=== PATIENT | male | born 1975 | race African-American/Black ===

== ENCOUNTER 2019-03-28 09:01 | Emergency (ER) | payer SELFPAY ==
--- NOTE | 2019-03-28 09:33 | ER Document Report ---
ED General - General Chief Complaint: Medical Complaint Stated Complaint: KIDNEY PROBLEM Time Seen by Provider: 03/28/19 09:25 Primary Care Provider: EMELI BREAUX [NO LOCAL MD] - Follow up as needed TRAVEL OUTSIDE OF THE U.S. IN LAST 30 DAYS: No - HPI Notes: This is a 43-year-old gentleman with a history of end-stage renal disease secondary to hypertensive disease, who presents today with a complaint of "I need dialysis." Patient recently was [facility] [place] where e spent the last 9-1/2 years. He used to get dialysis through the [facility] system. He states that prior to his release from [facility], they told him that they had arranged for him to continue his dialysis here in [place] where he lives. He called the dialysis center at [facility] yesterday and was told they had no information about him in the systems. His last dialysis was on Saturday prior to his release on . He normally gets dialyzed on Tuesdays, and Saturday. He is concerned about going all weekend without dialysis. He has no complaints at this time. He denies any shortness of breath or chest pain. - Related Data Allergies/Adverse Reactions: No Known Allergies Allergy (Unverified 03/28/19 09:15) Home Medications: abacavir. benadryl. darunavir/cobicstat. diltiazem. labetalol. latanoprost. minoxidil. ranitidine. sevelamer carbonate. tenofovir. vitamin A&D. vitamin B. vitamin D3. darbepoetin isreal. doxercalciferol Past Medical History - Social History Smoking Status: Never Smoker Chew tobacco use (# tins/day): No Frequency of alcohol use: None Drug Abuse: None Family History: Reviewed & Not Pertinent Patient has suicidal ideation: No Patient has homicidal ideation: No Skin Medical History: Comment Only Hx MRSA - MRSA 08/27 BLOOD,MRSA 08/27 CTIP Review of Systems - Review of Systems Cardiovascular: denies: Chest pain, Palpitations Respiratory: denies: Cough, Short of breath Gastrointestinal: denies: Abdominal pain Neurological/Psychological: denies: Headaches -: Yes All other systems reviewed and negative Physical Exam - Vital signs Vitals: Temp Pulse Resp BP Pulse Ox 97.6 F 78 18 171/107 H 100 03/28/19 09:07 03/28/19 09:07 03/28/19 09:07 03/28/19 09:07 03/28/19 09:07 - General General appearance: Appears well, Alert - Respiratory Respiratory status: No respiratory distress Chest status: Nontender Breath sounds: Normal Chest palpation: Normal - Cardiovascular Rhythm: Regular Heart sounds: Normal auscultation Murmur: No - Abdominal Inspection: Normal Distension: No distension Bowel sounds: Normal Tenderness: Nontender Organomegaly: No organomegaly - Extremities General upper extremity: Normal inspection, Nontender, Normal color, Normal ROM, Normal temperature General lower extremity: Normal inspection, Nontender, Normal color, Normal ROM, Normal temperature, Normal weight bearing. No: Nico's sign - Neurological Neuro grossly intact: Yes Cognition: Normal Orientation: AAOx4 [place] Coma Scale Eye Opening: Spontaneous [place] Coma Scale Verbal: Oriented [place] Coma Scale Motor: Obeys Commands [place] Coma Scale Total: 15 Speech: Normal Motor strength normal: LUE, RUE, LLE, RLE Sensory: Normal - Psychological Associated symptoms: Normal affect, Normal mood Course - Re-evaluation Re-evalutation: 03/28/19 09:31 Clinical presentation is consistent with end-stage renal disease. 2. Hypertension. Patient will need dialysis set up. We do not have anyone donkey doctor for nephrology today. And will check basic labs to check his potassium. We will also get a chest x-ray to rule out fluid overload. Once again the tests back, we will need to figure out how to get him set up for dialysis. 03/28/19 11:41 Patient is doing well. Labs reviewed. Potassium is normal. No evidence of CHF. While this patient does not need emergent dialysis right now, he needs dialysis today or tomorrow since his last dialysis was Saturday. We do not have anybody donkey doctor for nephrology. I will try to discuss this care with magistrate judge at [facility]. I discussed care with hospitalist there ( Dr. anderson) and she will have their magistrate judge ( Dr. Azul) call me 03/28/19 12:09 Patient's care discussed with Dr. Azul, magistrate judge at [place]. He recommends that I have patient come to the emergency department on Saturday mo rning at 7 AM. The patient can then go to the dialysis fbed for dialysis. If there were no beds, patient should go to either [facility] or [facility] so he can get dialysis on Saturday. They were then try to get him plugged into the system. If he has trouble brething ove rthe , he shoul dgo to [facility] or [facility]. Dr. Azul discussed this plan with Dr. Collier, onw of our nephrologists here and his partner. Dr. Collier is aware and is agreeable to the plan. They will look out for the patient on Saturday around 7 AM. I also gave the patient's number to Dr. Azul so they can call the patient if needed. I have counseled the patient to reduce his water intake and his potassium intake. Counseled him to reduce for such as bananas. Counseled patient to return if he has any trouble breathing. He understands. 03/28/19 12:18 Patient is doing well. He tells me he has blood pressure medication at home. He just did not take it this morning. Counseled to take his medications. Fo llow-up instructions given. He is stable for discharge. - Vital Signs Vital signs: Temp Pulse Resp BP Pulse Ox 97.6 F 78 23 H 171/107 H 100 03/28/19 09:07 03/28/19 09:07 03/28/19 11:00 03/28/19 09:07 03/28/19 11:00 - Laboratory Result Diagrams: 03/28/19 09:38 03/28/19 09:38 Laboratory results interpreted by me: 03/28/19 03/28/19 09:38 09:38 Hgb 11.4 L Hct 35.4 L MCV 71 L MCH 22.9 L RDW 17.0 H BUN 37 H Creatinine 14.66 H Est GFR ( Amer) 4 L Est GFR (MDRD) Non-Af 4 L Discharge - Discharge Clinical Impression: End stage renal disease Hypertension Qualifiers: Hypertension type: unspecified Qualified Code(s): I10 - Essential (primary) hypertension Condition: Good Disposition: HOME, SELF-CARE Instructions: High Blood Pressure ([facility]) Additional Instructions: Come back to the emergency department on Saturday morning at 7 AM. They will get you to the dialysis bed for dialysis. If there are no beds available, you would have to go to [facility] or [facility] for dialysis as discussed. Do not drink plenty of fluids. Avoid foods such as bananas that have potassium in them. If still having any trouble breathing over the weekend, go to [facility] to [facility] for dialysis. Make sure you take your blood pressure medications as discussed. Referrals: SAEID,NO [NO LOCAL MD] - Follow up as needed
--- NOTE | 2019-03-28 10:24 | RADIOLOGY REPORT (SQ) ---
EXAM DESCRIPTION: CHEST 2 VIEWS COMPLETED DATE/TIME: 03/28/2019 10:14 am REASON FOR STUDY: missed dilysis ? volume overload COMPARISON: None. EXAM PARAMETERS: NUMBER OF VIEWS: two views TECHNIQUE: Digital Frontal and Lateral radiographic views of the chest acquired. RADIATION DOSE: NA LIMITATIONS: none FINDINGS: LUNGS AND PLEURA: No opacities, masses or pneumothorax. No pleural effusion. MEDIASTINUM AND HILAR STRUCTURES: No masses or contour abnormalities. HEART AND VASCULAR STRUCTURES: Heart normal size. No evidence for failure. BONES: No acute findings. HARDWARE: None in the chest. OTHER: No other significant finding. IMPRESSION: NO ACUTE RADIOGRAPHIC FINDING IN THE CHEST. TECHNICAL DOCUMENTATION: JOB ID: [id number] [employer]- All Rights Reserved Reading location - IP/workstation name: [email or web address]
[2019-03-28 10:30] LABS: ABSOLUTE EOSINOPHILS # (AUTO) 0.2 10^3/uL (0.0-0.6); ABSOLUTE LYMPHOCYTES (AUTO) 1.5 10^3/uL (0.5-4.7); ABSOLUTE MONOCYTES (AUTO) 0.5 10^3/uL (0.1-1.4); BASOPHILS % (AUTO) 0.6 % (0-2); EOSINOPHILS % (AUTO) 3.6 % (0-6); HEMATOCRIT 35.4 % (37.9-51.0); HEMOGLOBIN 11.4 g/dL (13.5-17.0); LYMPHOCYTES % (AUTO) 27.9 % (13-45); MEAN CORPUSCULAR HEMOGLOBIN 22.9 pg (27.0-33.4); MEAN CORPUSCULAR HGB CONC 32.1 g/dL (32.0-36.0); MEAN CORPUSCULAR VOLUME 71 fl (80-97); MONOCYTES % (AUTO) 9.4 % (3-13); PLATELET COUNT 166 10^3/uL (150-450); RED BLOOD COUNT 4.98 10^6/uL (4.35-5.55); SEGMENTED NEUTROPHILS % (AUTO) 58.5 % (42-78); TOTAL CELLS COUNTED % (AUTO) 100 %; WHITE BLOOD COUNT 5.2 10^3/uL (4.0-10.5)
[2019-03-28 10:44] LABS: ANION GAP 13 (5-19); BLOOD UREA NITROGEN 37 mg/dL (7-20); CALCIUM 10.2 mg/dL (8.4-10.2); CARBON DIOXIDE 24 mmol/L (22-30); CHLORIDE 106 mmol/L (98-107); GLUCOSE 90 mg/dL (75-110); POTASSIUM 4.6 mmol/L (3.6-5.0)
[2019-03-28] MEDS ORDERED: CLONIDINE HCL 0.1 MG TABLET PO ONE (11:29)
[2019-03-28 12:31] VITALS: BP 183/97
== END 2019-03-28 12:34 | disposition home or self-care (01) ==
LOC: ER 09:01
DX: I12.0 Hypertensive chronic kidney disease with stage 5 chronic kidney disease or end stage renal disease (principal); N18.6 End stage renal disease; Z99.2 Dependence on renal dialysis; Z86.14 Personal history of Methicillin resistant Staphylococcus aureus infection
CPT/HCPCS: 36415; 71046; 80048; 85025

== ENCOUNTER 2019-03-30 09:34 | Emergency (ER) | payer SELFPAY ==
[2019-03-30 11:03] LABS: ABSOLUTE EOSINOPHILS # (AUTO) 0.1 10^3/uL (0.0-0.6); ABSOLUTE LYMPHOCYTES (AUTO) 1.2 10^3/uL (0.5-4.7); ABSOLUTE MONOCYTES (AUTO) 0.2 10^3/uL (0.1-1.4); ABSOLUTE NEUT (AUTO) 2.6 10^3/uL (1.7-8.2); BASOPHILS % (AUTO) 0.3 % (0-2); EOSINOPHILS % (AUTO) 3.4 % (0-6); HEMATOCRIT 36.8 % (37.9-51.0); HEMOGLOBIN 11.6 g/dL (13.5-17.0); LYMPHOCYTES % (AUTO) 27.9 % (13-45); MEAN CORPUSCULAR HEMOGLOBIN 22.5 pg (27.0-33.4); MEAN CORPUSCULAR HGB CONC 31.5 g/dL (32.0-36.0); MEAN CORPUSCULAR VOLUME 71 fl (80-97); MONOCYTES % (AUTO) 5.8 % (3-13); PLATELET COUNT 174 10^3/uL (150-450); RED BLOOD COUNT 5.15 10^6/uL (4.35-5.55); RED CELL DISTRIBUTION WIDTH 16.9 % (11.5-14.0); SEGMENTED NEUTROPHILS % (AUTO) 62.6 % (42-78); TOTAL CELLS COUNTED % (AUTO) 100 %; WHITE BLOOD COUNT 4.2 10^3/uL (4.0-10.5)
[2019-03-30 11:26] LABS: ALBUMIN 4.2 g/dL (3.5-5.0); ALKALINE PHOSPHATASE 58 U/L (38-126); ANION GAP 16 (5-19); ASPARTATE AMINO TRANSFERASE 14 U/L (17-59); BILIRUBIN,DIRECT 0.4 mg/dL (0.0-0.4); BILIRUBIN,TOTAL 0.7 mg/dL (0.2-1.3); BLOOD UREA NITROGEN 52 mg/dL (7-20); CALCIUM 9.2 mg/dL (8.4-10.2); CARBON DIOXIDE 21 mmol/L (22-30); CHLORIDE 103 mmol/L (98-107); GLUCOSE 136 mg/dL (75-110); POTASSIUM 4.6 mmol/L (3.6-5.0); TOTAL PROTEIN 7.6 g/dL (6.3-8.2)
--- NOTE | 2019-03-30 11:53 | ER Document Report ---
ED Medical Screen (RME) - General Chief Complaint: Other Stated Complaint: DIALYSIS Time Seen by Provider: 03/30/19 11:46 Notes: 43-year-old male with end-stage renal disease presents per instruction for dialysis. It was arranged 2 days ago here in the emergency department and Dr. Collier is aware. Please see ED note from 03/28. Page has been placed out to Dr. Collier. Labs have been drawn and resulted. Patient denies any acute shortness of breath but states he feels like "I have a little bit of water on me". Exam: Well-appearing in no acute distress, lungs are clear to auscultation all rosas. I have greeted and performed a rapid initial assessment of this patient. A comprehensive ED assessment and evaluation of the patient, analysis of test results and completion of medical decision making process will be conducted by an additional ED providers. TRAVEL OUTSIDE OF THE U.S. IN LAST 30 DAYS: No - Related Data Allergies/Adverse Reactions: No Known Allergies Allergy (Unverified 03/28/19 09:15) Home Medications: ranitdine, sevelamer carbonate, tenofovir, vitamin A ointment, vitamin C, vitamin d#, darbepoetin, doxercalciferol, abacavir, diphenhydramine, darunnavir, diltiazem, labetalol, latanoprost, minoxidil Past Medical History - Social History Chew tobacco use (# tins/day): No Frequency of alcohol use: None Drug Abuse: None - Past Medical History Cardiac Medical History: Reports: Hx Hypertension Endocrine Medical History: Reports: Hx Diabetes Mellitus Type 2 Skin Medical History: Comment Only Hx MRSA - MRSA 08/27 BLOOD,MRSA 08/27 CTIP Physical Exam - Vital signs Vitals: Temp Resp Pulse Ox 97.6 F 15 100 03/30/19 10:22 03/30/19 10:22 03/30/19 10:22 Course - Vital Signs Vital signs: Temp Pulse Resp BP Pulse Ox 97.6 F 16 144/93 H 100 03/30/19 10:22 03/30/19 10:23 03/30/19 10:23 03/30/19 10:23 - Laboratory Result Diagrams: 03/30/19 10:15 03/30/19 10:15 Laboratory results interpreted by me: 03/30/19 03/30/19 10:15 10:15 Hgb 11.6 L Hct 36.8 L MCV 71 L MCH 22.5 L MCHC 31.5 L RDW 16.9 H Carbon Dioxide 21 L BUN 52 H Creatinine 19.52 H Est GFR ( Amer) 3 L Est GFR (MDRD) Non-Af 3 L Glucose 136 H AST 14 L
[2019-03-30] MEDS ORDERED: TUBERCULIN,PURIF.PROT.DERIV. 5 TU/0.1 ML TEST 1 ML VIAL ID ONE (12:37)
--- NOTE | 2019-03-30 12:48 | ER Document Report ---
ED General - General Chief Complaint: Other Stated Complaint: DIALYSIS Time Seen by Provider: 03/30/19 11:46 TRAVEL OUTSIDE OF THE U.S. IN LAST 30 DAYS: No - Related Data Allergies/Adverse Reactions: No Known Allergies Allergy (Unverified 03/28/19 09:15) Home Medications: ranitdine, sevelamer carbonate, tenofovir, vitamin A ointment, vitamin C, vitamin d#, darbepoetin, doxercalciferol, abacavir, diphenhydramine, darunnavir, diltiazem, labetalol, latanoprost, minoxidil Past Medical History - Social History Smoking Status: Former Smoker Chew tobacco use (# tins/day): No Frequency of alcohol use: None Drug Abuse: None Family History: Reviewed & Not Pertinent Patient has suicidal ideation: No Patient has homicidal ideation: No - Past Medical History Cardiac Medical History: Reports: Hx Hypertension Endocrine Medical History: Reports: Hx Diabetes Mellitus Type 2 Skin Medical History: Comment Only Hx MRSA - MRSA 08/27 BLOOD,MRSA 08/27 CTIP Physical Exam - Vital signs Vitals: Temp Resp Pulse Ox 97.6 F 15 100 03/30/19 10:22 03/30/19 10:22 03/30/19 10:22 - Notes Notes: Patient presents emergency department today for dialysis. Patient is a dialysis patient and gets dialyzed Saturday and Saturday. This dialysis on Saturday he was released from group home in [place] returns to [place] where he lives. He was seen here 2 days ago for evaluation. At that time his laboratory studies were unremarkable and x-ray showed evidence of fluid overload. It was discussed with nephrology who requested patient return to the ED on Saturday. Denies any chest pain or shortness of breath fevers nausea vomiting or abdominal pain Past medical history sent for hypertension and chronic renal failure. Social history does not smoke or drink Family history noncontributory PHYSICAL EXAMINATION: Vital signs were noted GENERAL: Well-appearing, well-nourished and in no acute distress. HEAD: Atraumatic, normocephalic. EYES: Pupils equal round and reactive to light, extraocular movements intact, sclera anicteric, conjunctiva are normal. ENT: nares patent, oropharynx clear without exudates. Moist mucous membranes. NECK: Normal range of motion, supple without lymphadenopathy LUNGS: Breath sounds clear to auscultation bilaterally and equal. No wheezes rales or rhonchi. HEART: Regular rate and rhythm without murmurs with a rate of 80 ABDOMEN: Soft, nontender, normoactive bowel sounds. No guarding, no rebound. No masses appreciated. EXTREMITIES: No deformity, no pitting or edema. No cyanosis. NEUROLOGICAL: No focal neurological deficits. Moves all extremities spontaneously and on command. PSYCH: Normal mood, normal affect. SKIN: Warm, Dry, normal turgor, no rashes or lesions noted. Back is nontender Course - Re-evaluation Re-evalutation: 03/30/19 12:48 ED patient remained stable reviewed his note from the other day. Medical decision making patient is a dialysis patient who needs dialysis. His potassium is not abnormal is no complaints of shortness of breath he has good O2 sats. At this point he restenosis for dialysis and discharged home to arrange for normal dialysis schedule. Also recommend he follow-up in clinic in 1 week to recheck his blood pressure - Vital Signs Vital signs: Temp Pulse Resp BP Pulse Ox 97.6 F 18 147/95 H 98 03/30/19 10:22 03/30/19 12:01 03/30/19 12:01 03/30/19 12:01 - Laboratory Result Diagrams: 03/30/19 10:15 03/30/19 10:15 Laboratory results interpreted by me: 03/30/19 03/30/19 10:15 10:15 Hgb 11.6 L Hct 36.8 L MCV 71 L MCH 22.5 L MCHC 31.5 L RDW 16.9 H Carbon Dioxide 21 L BUN 52 H Creatinine 19.52 H Est GFR ( Amer) 3 L Est GFR (MDRD) Non-Af 3 L Glucose 136 H AST 14 L Discharge - Discharge Clinical Impression: Chronic renal failure Qualifiers: Chronic kidney disease stage: unspecified stage Qualified Code(s): N18.9 - Chronic kidney disease, unspecified Hypertension Qualifiers: Hypertension type: unspecified Qualified Code(s): I10 - Essential (primary) hypertension Disposition: HOME, SELF-CARE Instructions: High Blood Pressure ([facility]) Additional Instructions: Please review the discharge instructions Follow-up in the clinic in 1 week to recheck your blood pressure Return to the ED if you get worse Forms: Elevated Blood Pressure
[2019-03-30 18:10] VITALS: BP 148/87
--- NOTE | 2019-03-30 21:53 | PDOC CONSULTATION ---
Consultation Consult Date: 03/30/19 Provider Consulted: Adrian CHEATHAM Consult reason:: ESRD for hemodialysis. History of Present Illness History of Present Illness: MARVIN DO is a 43 year old male with past medical history of chronic hypertension and ESRD on hemodialysis presents emergency department today for dialysis after his last dialysis was last Saturday in [place]. His last dialysis was on Saturday he was released from [facility] in [place] returns to [place] where he lives. He did not apparently make appropriate arrangements prior to him moving down to [place]. He came last Saturday for dialysis in the hospital but obviously did not have any acute indications other than early fluid overload on x-ray. He was given diuretics and then was advised to return back to the ER on Saturday to see how we can accommodate him. Patient says he is mildly short of breath if he exerts a lot but otherwise doing okay. He still continues to make small amounts of urine. Labs and medications were reviewed. Patient was subsequently started on dialysis and is being seen while undergoing dialysis. Labs and medications were reviewed. He denies any chronic illnesses like hepatitis or HIV or diabetes. Denies any chest pain or shortness of breath fevers nausea vomiting or abdominal pain Past Medical History Cardiac Medical History: Reports: Hypertension-primary Endocrine Medical History: Reports: Diabetes Mellitus Type 2 Renal/ Medical History: Reports: End Stage Renal Disease, Secondary Hyperparathyroidism Social History Smoking Status: Former Smoker Electronic Cigarette use?: No Family History Parental Family History Reviewed: Yes - Denies any history of ESRD in his parents. Children Family History Reviewed: No Sibling(s) Family History Reviewed.: No Medication/Allergy Allergies/Adverse Reactions: No Known Allergies Allergy (Unverified 03/28/19 09:15) Review of Systems Constitutional: PRESENT: weakness. ABSENT: anorexia, fatigue, fever(s), night sweats Ears: ABSENT: hearing changes Nose, Mouth, and Throat: ABSENT: mouth pain, sore throat Cardiovascular: PRESENT: dyspnea on exertion. ABSENT: chest pain, edema, orthropnea, palpitations Respiratory: PRESENT: dyspnea. ABSENT: cough, hemoptysis Gastrointestinal: ABSENT: abdominal pain, coffee ground emesis, diarrhea, dysphagia, heartburn, hematemesis, hematochezia Genitourinary: ABSENT: difficulty urinating, dysuria, hematuria Musculoskeletal: ABSENT: deformity, joint swelling Integumentary: ABSENT: lesions, pruritus, rash Neurological: ABSENT: abnormal movements, abnormal speech, confusion, convulsions, focal weakness Endocrine: ABSENT: polydipsia, polyphagia Hematologic/Lymphatic: ABSENT: easy bruising, lymphadenopathy Physical Exam Vital Signs: Temp Pulse Resp BP Pulse Ox 98.7 F 79 20 148/87 H 100 03/30/19 18:09 03/30/19 18:09 03/30/19 18:09 03/30/19 18:09 03/30/19 18:09 Intake & Output 03/29/19 03/30/19 03/31/19 06:59 06:59 06:59 Weight 88.451 kg General appearance: PRESENT: no acute distress Eye exam: PRESENT: EOMI, PERRLA Ear exam: PRESENT: normal external ear exam Mouth exam: PRESENT: neck supple. ABSENT: moist Neck exam: ABSENT: lymphadenopathy, meningismus, tenderness, thyromegaly, trac heal deviation Respiratory exam: PRESENT: clear to auscultation alexander. ABSENT: crackles Cardiovascular exam: PRESENT: +S1, +S2 GI/Abdominal exam: PRESENT: normal bowel sounds, soft. ABSENT: organomegaly, tenderness Extremities exam: ABSENT: pedal edema Neurological exam: PRESENT: alert, awake, oriented to person, oriented to place Psychiatric exam: PRESENT: appropriate affect Skin exam: ABSENT: cyanosis, erythema, mottled, rash Results Laboratory Results: 03/30/19 10:15 03/30/19 10:15 03/30/19 03/30/19 10:15 10:15 WBC 4.2 RBC 5.15 Hgb 11.6 L Hct 36.8 L MCV 71 L MCH 22.5 L MCHC 31.5 L RDW 16.9 H Plt Count 174 Seg Neutrophils % 62.6 Sodium 139.5 Potassium 4.6 Chloride 103 Carbon Dioxide 21 L Anion Gap 16 BUN 52 H Creatinine 19.52 H Est GFR ( Amer) 3 L Glucose 136 H Calcium 9.2 Total Bilirubin 0.7 AST 14 L Alkaline Phosphatase 58 Total Protein 7.6 Albumin 4.2 Assessment & Plan - Diagnosis (1) End stage renal disease Plan: Patient has early symptoms of early congestive heart failure after his last dialysis was approximately a week ago. Patient is now begun on dialysis and undergoing dialysis without any issues. Vital signs are stable. Plan to remove between 4-5 L of fluid as tolerated. Dialysis is being supervised to ensure safe and smooth procedure. We will get hepatitis serology and PPD testing done while we arrange his next dialysis as an outpatient. Reviewed and discussed orders with the treating dialysis nurse. Advised patient to ensure that he watches his diet carefully until he gets his next dialysis as an outpatient at [facility]. (2) Hypertension Qualifiers: Hypertension type: unspecified Qualified Code(s): I10 - Essential (primary) hypertension Plan: Under good control. Monitor. Advised compliance with medications and diet.
[2019-04-01 08:37] LABS: HEPATITS B SURFACE ANTIGEN Negative (Negative)
[2019-04-01 10:39] LABS: HEPATITIS B CORE AB TOT Negative (Negative)
== END 2019-03-30 18:12 | disposition home or self-care (01) ==
LOC: ER 09:34
DX: I12.0 Hypertensive chronic kidney disease with stage 5 chronic kidney disease or end stage renal disease (principal); E11.22 Type 2 diabetes mellitus with diabetic chronic kidney disease; N18.6 End stage renal disease; Z99.2 Dependence on renal dialysis; Z79.899 Other long term (current) drug therapy; Z87.891 Personal history of nicotine dependence
CPT/HCPCS: 36415; 85025; 80053; 86704; 86317; 87340; 87522; J3490; 96374; 99282

== ENCOUNTER 2019-04-03 07:09 | Emergency (ER) | payer SELFPAY ==
[2019-04-03 09:48] LABS: ABSOLUTE EOSINOPHILS # (AUTO) 0.2 10^3/uL (0.0-0.6); ABSOLUTE LYMPHOCYTES (AUTO) 1.5 10^3/uL (0.5-4.7); ABSOLUTE MONOCYTES (AUTO) 0.4 10^3/uL (0.1-1.4); ABSOLUTE NEUT (AUTO) 2.7 10^3/uL (1.7-8.2); BASOPHILS % (AUTO) 0.6 % (0-2); EOSINOPHILS % (AUTO) 3.6 % (0-6); HEMATOCRIT 33.3 % (37.9-51.0); HEMOGLOBIN 10.7 g/dL (13.5-17.0); LYMPHOCYTES % (AUTO) 30.4 % (13-45); MEAN CORPUSCULAR HEMOGLOBIN 22.8 pg (27.0-33.4); MEAN CORPUSCULAR HGB CONC 32.1 g/dL (32.0-36.0); MEAN CORPUSCULAR VOLUME 71 fl (80-97); MONOCYTES % (AUTO) 8.3 % (3-13); PLATELET COUNT 168 10^3/uL (150-450); RED BLOOD COUNT 4.69 10^6/uL (4.35-5.55); RED CELL DISTRIBUTION WIDTH 16.8 % (11.5-14.0); SEGMENTED NEUTROPHILS % (AUTO) 57.1 % (42-78); TOTAL CELLS COUNTED % (AUTO) 100 %; WHITE BLOOD COUNT 4.8 10^3/uL (4.0-10.5)
[2019-04-03 10:12] LABS: ALBUMIN 4.3 g/dL (3.5-5.0); ALKALINE PHOSPHATASE 66 U/L (38-126); ANION GAP 17 (5-19); ASPARTATE AMINO TRANSFERASE 22 U/L (17-59); BILIRUBIN,DIRECT 0.4 mg/dL (0.0-0.4); BILIRUBIN,TOTAL 0.5 mg/dL (0.2-1.3); BLOOD UREA NITROGEN 56 mg/dL (7-20); CALCIUM 8.9 mg/dL (8.4-10.2); CARBON DIOXIDE 25 mmol/L (22-30); CHLORIDE 101 mmol/L (98-107); GLUCOSE 104 mg/dL (75-110); POTASSIUM 4.5 mmol/L (3.6-5.0); TOTAL PROTEIN 7.6 g/dL (6.3-8.2)
--- NOTE | 2019-04-03 10:34 | RADIOLOGY REPORT (SQ) ---
EXAM DESCRIPTION: CHEST SINGLE VIEW COMPLETED DATE/TIME: 04/03/2019 10:20 am REASON FOR STUDY: dyspnea COMPARISON: 03/28/2019 EXAM PARAMETERS: NUMBER OF VIEWS: One view. TECHNIQUE: Single frontal radiographic view of the chest acquired. RADIATION DOSE: NA LIMITATIONS: None. FINDINGS: LUNGS AND PLEURA: No opacities, masses or pneumothorax. No pleural effusion. MEDIASTINUM AND HILAR STRUCTURES: No masses. Contour normal. HEART AND VASCULAR STRUCTURES: Heart normal in size. Normal vasculature. BONES: No acute findings. HARDWARE: None in the chest. OTHER: No other significant finding. IMPRESSION: NO ACUTE RADIOGRAPHIC FINDING IN THE CHEST. TECHNICAL DOCUMENTATION: JOB ID: [id number] [employer]- All Rights Reserved Reading location - IP/workstation name: [email or web address]
--- NOTE | 2019-04-03 12:10 | ER Document Report ---
Entered by ANEL BETTS SCRIBE 04/03/19 1134 Acting as scribe for:PAM CERVANTES IV, MD ED General - General Chief Complaint: Other Stated Complaint: DIALYSIS Time Seen by Provider: 04/03/19 09:01 Primary Care Provider: THERON GODINEZ MD [ACTIVE STAFF] - 04/06/19 Mode of Arrival: Ambulatory Information source: Patient Notes: 43-year-old male who presents to the emergency department today for dialysis treatment. Patient is having some sort of issue with insurance and has been getting dialyzed here until paperwork at [facility] is finished. Patient was last dialyzed on 03/30/2019. Patient states he was due for dialysis on 04/01 but he did not get it done at that time and waited until today (04/03). Patient states he did not want to wait any longer as he would have to wait until Saturday due to the weekend. Patient has no complaints and is asymptomatic. Patient states he has been on dialysis for 11 years and has a right forearm fistula. Patient denies shortness of breath. TRAVEL OUTSIDE OF THE [place] IN LAST 30 DAYS: No - Related Data Allergies/Adverse Reactions: No Known Allergies Allergy (Verified 04/03/19 07:32) Home Medications: bp medication. cant remember the others Past Medical History - General Information source: Patient, H Records - Social History Smoking Status: Unknown if Ever Smoked Frequency of alcohol use: None Drug Abuse: None Family History: Reviewed & Not Pertinent Patient has suicidal ideation: No Patient has homicidal ideation: No - Past Medical History Cardiac Medical History: Reports: Hx Hypertension Endocrine Medical History: Reports: Hx Diabetes Mellitus Type 2 Renal/ Medical History: Reports: Hx End Stage Renal Disease Skin Medical History: Reports Hx MRSA - MRSA 08/27 BLOOD,MRSA 08/27 CTIP Review of Systems - Review of Systems Notes: here for dialysis, no complaints Constitutional: No symptoms reported EENT: No symptoms reported Cardiovascular: No symptoms reported Respiratory: No symptoms reported Gastrointestinal: No symptoms reported Genitourinary: No symptoms reported Male Genitourinary: No symptoms reported Musculoskeletal: No symptoms reported Skin: No symptoms reported Hematologic/Lymphatic: No symptoms reported Neurological/Psychological: No symptoms reported -: Yes All other systems reviewed and negative Physical Exam - Vital signs Vitals: Temp Pulse Resp BP Pulse Ox 97.5 F 82 20 136/84 H 100 04/03/19 07:14 04/03/19 07:14 04/03/19 07:14 04/03/19 07:14 04/03/19 07:14 - Notes Notes: Physical Exam: General: Alert, appears well. HEENT: Normocephalic. Atraumatic. PERRL. Extraocular movements intact. Oropharynx clear. Neck: Supple. Non-tender. Respiratory: No respiratory distress. Clear and equal breath sounds bilaterally. Cardiovascular: Regular rate and rhythm. Abdominal: Normal Inspection. Non-tender. No distension. Normal Bowel Sounds. Back: No gross abnormalities. Extremities: Moves all four extremities. Upper extremities: Right forearm fistula with palpable thrill and audible bruit. Normal ROM. Lower extremities: Normal inspection. No edema. Normal ROM. Neurological: Normal cognition. AAOx4. Normal speech. Psychological: Normal affect. Normal Mood. Skin: Warm. Dry. Normal color. Course - Re-evaluation Re-evalutation: 04/03/19 11:33 Dr. Cervantes spoke to Dr. Godinez who advises to send the patient upstairs to the dialysis floor where he will be dialyzed and then sent back down here for discharge from the ED. 04/03/19 15:01 Spoke to Becky dialysis nurse, estimated time of completion of patient's hemodialysis will be 6 PM tonight. - Vital Signs Vital signs: Temp Pulse Resp BP Pulse Ox 98.2 F 84 20 156/98 H 98 04/03/19 12:47 04/03/19 12:47 04/03/19 07:14 04/03/19 12:47 04/03/19 12:47 - Laboratory Result Diagrams: 04/03/19 07:52 04/03/19 07:52 Laboratory results interpreted by me: 04/03/19 04/03/19 04/03/19 07:52 07:52 07:52 Hgb 10.7 L Hct 33.3 L MCV 71 L MCH 22.8 L RDW 16.8 H BUN 56 H Creatinine 21.07 H Est GFR ( Amer) 3 L Est GFR (MDRD) Non-Af 2 L Creatine Kinase 2163 H Discharge - Discharge Clinical Impression: Missed dialysis Condition: Good Disposition: HOME, SELF-CARE Additional Instructions: HOME CARE INSTRUCTIONS & INFORMATION: Thank you for choosing us for your medical needs. We hope you're satisfied with the care you received. After you leave, you must properly care for your problem and, at the same time, observe its progress. Any condition can change. Some illnesses can change rapidly over hours or days. If your condition worsens, return to the Emergency Department or see your physician promptly. ABOUT YOUR X-RAYS AND EKG'S: If you had an EKG or X-rays taken, they have been read by the Emergency Physician. The X-rays and EKG's will also be read by a Radiologist or Delivery Associate within 24 hours. If discrepancies are noted, you will be notified by telephone. Please be certain the ED has a correct telephone number & address where you can be reached. Also, realize that some fractures or abnormalities do not show up on initial X-rays. If your symptoms continue, see your physician. ABOUT YOUR LABORATORY TEST: If you had laboratory tests, the results have been reviewed by the Emergency Physician. Some test results (for example cultures) may not be available for several days. You will be contacted if any test result shows you need additional treatment. Please be certain the ED has a correct telephone number and address where you can be reached. ABOUT YOUR MEDICATIONS: You will receive instructions on how to take your medicine on the prescription label you receive. Additional information may be provided by the Pharmacy. If you have questions afterwards, call the ED for clarification or further instructions. Some prescribed medications may cause drowsiness. Do not perform tasks such as driving a car or operating machinery without consulting your Pharmacist. If you feel you need a refill of pain medication, your condition will need re-evaluation. Please do not call for a re fill of any medication. ABOUT YOUR SIGNATURE: Signature of this document acknowledges to followin. Understanding that you received emergency treatment and that you may be released before al medical problems are known or treated. Please be certain the ED has a correct phone number & address where you can be reached. 2. Acknowledgement that you will arrange for follow-up care as recommended. 3. Authorization for the Emergency Physician to provide information to your follow-up Physician in order to maximize your care. AT ANY TIME, IF YOUR SYMPTOMS CHANGE SIGNIFICANTLY OR WORSEN OR YOU DEVELOP NEW SYMPTOMS, RETURN TO THE EMERGENCY DEPARTMENT IMMEDIATELY FOR RE-EVALUATION. OUR GOAL IS TO PROVIDE EXCELLENT MEDICAL CARE! WE HOPE THAT WE HAVE MET YOUR EXPECTATIONS DURING YOUR EMERGENCY DEPARTMENT VISIT AND THAT YOU FEEL YOU HAVE RECEIVED EXCELLENT CARE! Return to the Emergency Department without delay if any worse. Referrals: THERON GODINEZ MD [ACTIVE STAFF] - 04/06/19 I personally performed the services described in the documentation, reviewed and edited the documentation which was dictated to the scribe in my presence, and it accurately records my words and actions.
[2019-04-03] MEDS ORDERED: NORMAL SALINE 1000 ML 1,000 ML IV PRN (14:10)
--- NOTE | 2019-04-03 17:57 | PDOC CONSULTATION ---
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 Patient has been incarcerated in [place] and just got released last week . He was dialyzed last week prior to the release, last Saturday. He came into the emergency room last Saturday also to be dialyzed. Nya is trying to processes h is informations and trying to get his insurance and so far has not been able to get it approved for him to go there for dialysis so he was advised again to come here in the emergency room to be dialyzed. I am seeing the patient on dialysis this afternoon. He is very comfortable and tolerating dialysis without any problems. He is really asymptomatic and denies any chest pains, shortness of breath, edema nor fatigue. Past Medical History Cardiac Medical History: Reports: Hypertension-primary Endocrine Medical History: Reports: Diabetes Mellitus Type 2 Renal/ Medical History: Reports: End Stage Renal Disease Hematology Medical History: Reports Anemia of Chronic Kidney Disease Past Surgical History Past Surgical History: Reports: Dialysis Access Surgery AVF Social History Information Source: [facility] Records Smoking Status: Unknown if Ever Smoked Electronic Cigarette use?: No Frequency of Alcohol Use: None Hx Recreational Drug Use: No Family History Family History: End Stage Renal Disease - Mother was on dialysis Parental Family History Reviewed: Yes Children Family History Reviewed: Unknown Sibling(s) Family History Reviewed.: Unknown Medication/Allergy Allergies/Adverse Reactions: No Known Allergies Allergy (Verified 04/03/19 07:32) Review of Systems All systems: reviewed and no additional remarkable complaints except as stated Review of Systems: Constitutional: ABSENT: chills, fatigue, fever(s), headache(s), weight gain, weight loss Eyes: ABSENT: visual disturbances Ears: ABSENT: hearing changes Cardiovascular: ABSENT: chest pain, dyspnea on exertion, edema, orthropnea, palpitations Respiratory: ABSENT: cough, dyspnea, hemoptysis Gastrointestinal: ABSENT: abdominal pain, constipation, diarrhea, hematemesis, hematochezia, nausea, vomiting Genitourinary: ABSENT: dysuria, hematuria Musculoskeletal: ABSENT: joint swelling Integumentary: ABSENT: rash, wounds Neurological: ABSENT: abnormal gait, abnormal speech, confusion, dizziness, focal weakness, numbness, syncope Psychiatric: ABSENT: anxiety, depression Endocrine: ABSENT: cold intolerance, heat intolerance, polydipsia, polyuria Hematologic/Lymphatic: ABSENT: easy bleeding, easy bruising, lymphadenopathy Physical Exam Vital Signs: Temp Pulse Resp BP Pulse Ox 98.2 F 84 20 156/98 H 98 04/03/19 12:47 04/03/19 12:47 04/03/19 07:14 04/03/19 12:47 04/03/19 12:47 Intake & Output 04/02/19 04/03/19 04/04/19 06:59 06:59 06:59 Weight 90.8 kg Vitals during dialysis: Blood pressure 165/98, pulse rate of 79, blood flow rate of 450 mL/min and dialysate flow rate of 800 mL/min. Exam: General appearance: No acute distress, cooperative, well-developed, well- nourished Head exam: PRESENT: atraumatic, normocephalic Eye exam: PRESENT: Conjunctiva Justice, EOMI, PERRLA. ABSENT: conjunctival injection, scleral icterus Mouth exam: PRESENT: moist, neck supple, tongue midline Neck exam: PRESENT: full ROM. ABSENT: carotid bruit, JVD, lymphadenopathy, thyromegaly Respiratory exam: PRESENT: clear to auscultation bilaterally. ABSENT: rales, rhonchi, stridor, wheezes Cardiovascular exam: PRESENT: RRR, +S1, +S2. ABSENT: systolic murmur Pulses: PRESENT: normal radial pulses, normal dorsalis pedis pulses GI/Abdominal exam: PRESENT: normal bowel sounds, soft. ABSENT: guarding, mass, tenderness Rectal exam: Deferred Extremities exam: PRESENT: full ROM. ABSENT: calf tenderness, pedal edema Musculoskeletal: PRESENT: full ROM. ABSENT: deformity Neurological exam: PRESENT: alert, Awake, Oriented to person, Oriented to place, Oriented to time, reflexes normal, CN II-XII grossly intact. ABSENT: motor sensory deficit Psychiatric exam: PRESENT: appropriate affect, normal mood. ABSENT: homicidal ideation, suicidal ideation Skin exam: PRESENT: intact, dry, warm. ABSENT: rash Results Laboratory Results: 04/03/19 07:52 04/03/19 07:52 04/03/19 04/03/19 07:52 07:52 WBC 4.8 RBC 4.69 Hgb 10.7 L Hct 33.3 L MCV 71 L MCH 22.8 L MCHC 32.1 RDW 16.8 H Plt Count 168 Seg Neutrophils % 57.1 Sodium 143.1 Potassium 4.5 Chloride 101 Carbon Dioxide 25 Anion Gap 17 BUN 56 H Creatinine 21.07 H Est GFR ( Amer) 3 L Glucose 104 Calcium 8.9 Total Bilirubin 0.5 AST 22 Alkaline Phosphatase 66 Total Protein 7.6 Albumin 4.3 04/03/19 07:52 Creatine Kinase 2163 H Impressions: Chest X-Ray 04/03/19 09:55 IMPRESSION: NO ACUTE RADIOGRAPHIC FINDING IN THE CHEST. Assessment & Plan - Diagnosis (1) End stage renal disease Is this a current diagnosis for this admission?: Yes Plan: We will do dialysis today for 3 hours, using the patient's AV fistula, with 2 potassium bath, blood flow rate of 450 mL per minute, dialysate flow rate of 800 mL per minute, ultrafiltration 2.5 to 3 L as tolerated, no heparin and no Procrit. Patient will be monitored throughout dialysis treatment. (2) Hypertension Qualifiers: Hypertension type: unspecified Qualified Code(s): I10 - Essential (primary) hypertension Is this a current diagnosis for this admission?: Yes Plan: Advised the patient regarding compliance with his blood pressure medications. Patient to resume his medications including labetalol, minoxidil and diltiazem as reported by him. - Notes Notes: From nephrology standpoint, patient can be discharged from the emergency room after dialysis. I was just informed that the patient's insurance finally came to and he was approved to go to [facility] on Saturday at around 2:00 PM. - Time Time Spent: 50 to 70 Minutes
[2019-04-03 18:19] VITALS: BP 162/101
--- NOTE | 2019-04-04 11:36 | EKG REPORT ---
SEVERITY:- NORMAL ECG - SINUS RHYTHM : Confirmed by: Belia Chase MD 04-Apr-2019 11:35:29
== END 2019-04-03 18:19 | disposition home or self-care (01) ==
LOC: ER 07:09
DX: I12.0 Hypertensive chronic kidney disease with stage 5 chronic kidney disease or end stage renal disease (principal); E11.22 Type 2 diabetes mellitus with diabetic chronic kidney disease; N18.6 End stage renal disease; Z99.2 Dependence on renal dialysis; Z91.15 Patient's noncompliance with renal dialysis; Z79.899 Other long term (current) drug therapy
CPT/HCPCS: 93005; 36415; 82550; 85025; 80053; 71045; 93010; G0257; 99283

== ENCOUNTER 2019-09-03 12:21 | Emergency (ER) | payer MEDICAID ==
[2019-09-03] MEDS ORDERED: ACETAMINOPHEN 325 MG TABLET PO ONE (13:14)
--- NOTE | 2019-09-03 13:35 | ER Document Report ---
ED General - General Chief Complaint: Fever Stated Complaint: FEVER Primary Care Provider: NEFTALY ANGELO MD [Primary Care Provider] - Follow up as needed Notes: Patient is a 43-year-old -[place] male with a history of chronic kidney disease, renal failure on hemodialysis, Saturday and Saturday who underwent his full dialysis session today who reports to the emergency department with a chief complaint of fever. Patient states she started to feel feverish 2 days ago. States he has had a decreased appetite but is still tolerating oral intake of liquids. He states because always had his liquid diet over the past 48 hours he has had some "runs". States that this is about twice a day, brown in color. He does still make urine but denies any urinary complaints. Denies any cough, shortness of breath, chest pain, abdominal pain, headache, neck pain or back pain. No recent travel or known sick contacts. TRAVEL OUTSIDE OF THE [place] IN LAST 30 DAYS: No - Related Data Allergies/Adverse Reactions: No Known Allergies Allergy (Verified 04/03/19 07:32) Home Medications: Tenofovir,Abacavir Past Medical History - Social History Smoking Status: Current Every Day Smoker Family History: Reviewed & Not Pertinent Patient has suicidal ideation: No Patient has homicidal ideation: No - Past Medical History Cardiac Medical History: Reports: Hx Hypertension Endocrine Medical History: Reports: Hx Diabetes Mellitus Type 2 Renal/ Medical History: Reports: Hx End Stage Renal Disease Skin Medical History: Reports Hx MRSA - MRSA 08/27 BLOOD,MRSA 08/27 CTIP Review of Systems - Review of Systems Constitutional: Fever Gastrointestinal: Diarrhea -: Yes All other systems reviewed and negative Physical Exam - Vital signs Vitals: Temp Pulse Resp BP Pulse Ox 101.1 F H 115 H 20 148/86 H 97 09/03/19 12:36 09/03/19 12:36 09/03/19 12:36 09/03/19 12:36 09/03/19 12:36 - General General appearance: Appears well, Alert In distress: None - HEENT Head: Normocephalic Eyes: Normal Conjunctiva: Normal Extraocular movements intact: Yes Neck: Supple - Respiratory Respiratory status: No respiratory distress - Cardiovascular Murmur: No - Extremities General upper extremity: Normal inspection General lower extremity: Normal inspection - Neurological Neuro grossly intact: Yes Cognition: Normal Orientation: AAOx4 [place] Coma Scale Eye Opening: Spontaneous [place] Coma Scale Verbal: Oriented [place] Coma Scale Motor: Obeys Commands [place] Coma Scale Total: 15 Speech: Normal - Psychological Associated symptoms: Normal affect, Normal mood - Skin Skin Color: Other - No rash noted on exposed skin Course - Re-evaluation Re-evalutation: 09/03/19 17:30 Patient with a left lower lobe pneumonia. Given Rocephin and Zithromax here. He was tested for coronavirus. He is currently a patient under investigation at this time pending the result. He will be sent home on Zithromax. He was instructed to remain in self quarantine/self isolation for 14 days or until a negative result. He supposed to receive dialysis on Saturday. He will call his dialysis center for further instruction and care on how to receive his necessary dialysis as a quarantine patient. I counseled him at length return here or any ER immediately with any new, persistent or worsening symptoms. He verbalized understood and agreed. - Vital Signs Vital signs: Temp Pulse Resp BP Pulse Ox 100.9 F H 93 18 147/89 H 98 09/03/19 16:59 09/03/19 16:59 09/03/19 16:59 09/03/19 16:59 09/03/19 16:59 - Laboratory Result Diagrams: 09/03/19 14:00 09/03/19 14:00 Laboratory results interpreted by me: 09/03/19 09/03/19 09/03/19 14:00 14:00 14:05 Hgb 11.4 L Hct 34.5 L MCV 73 L MCH 24.1 L RDW 16.9 H Plt Count 131 L Lymph % (Auto) 9.3 L Seg Neutrophils % 80.2 H Sodium 135.5 L Chloride 97 L Carbon Dioxide 31 H BUN 22 H Creatinine 8.08 H Est GFR ( Amer) 9 L Est GFR (MDRD) Non-Af 7 L Glucose 119 H Urine Protein 100 H Urine Glucose (UA) 50 H Urine Blood SMALL H Urine Urobilinogen 2.0 H Discharge - Discharge Clinical Impression: PUI for COVID-19 Pneumonia Qualifiers: Pneumonia type: due to unspecified organism Laterality: left Lung location: lower lobe of lung Qualified Code(s): J18.9 - Pneumonia, unspecified organism Condition: Stable Disposition: HOME, SELF-CARE Instructions: Pneumonia ([facility]) Additional Instructions: You are currently a patient under investigation for coronavirus/COVID-19. Please remain in self isolation/quarantine status at this time. Please communicate with your healthcare professional's on how to coordinate your necessary care such as your dialysis. Please remain in quarantine status/isolated until a negative result is obtained or for 14 days whichever comes first. Return here or any ER immediately with any new, persistent or worsening symptoms. Prescriptions: Azithromycin [Zithromax 250 mg Tablet] 250 mg PO ASDIR PRN #6 tablet PRN Reason: Referrals: NEFTALY ANGELO MD [Primary Care Provider] - Follow up as needed
--- NOTE | 2019-09-03 13:48 | RADIOLOGY REPORT (SQ) ---
EXAM DESCRIPTION: CHEST SINGLE VIEW IMAGES COMPLETED DATE/TIME: 09/03/2019 1:29 pm REASON FOR STUDY: fever COMPARISON: None. EXAM PARAMETERS: NUMBER OF VIEWS: One view. TECHNIQUE: Single frontal radiographic view of the chest acquired. RADIATION DOSE: NA LIMITATIONS: None. FINDINGS: LUNGS AND PLEURA: Subsegmental airspace disease lateral to the left heart border. MEDIASTINUM AND HILAR STRUCTURES: No masses. Contour normal. HEART AND VASCULAR STRUCTURES: Heart normal in size. Normal vasculature. BONES: No acute findings. HARDWARE: None in the chest. OTHER: No other significant finding. IMPRESSION: Left lower lobe pneumonia. TECHNICAL DOCUMENTATION: JOB ID: [id number] 2010 [employer]- All Rights Reserved Reading location - IP/workstation name: [email or web address]
[2019-09-03 14:10] LABS: ABSOLUTE LYMPHOCYTES (AUTO) 0.7 10^3/uL (0.5-4.7); ABSOLUTE MONOCYTES (AUTO) 0.8 10^3/uL (0.1-1.4); BASOPHILS % (AUTO) 0.3 % (0-2); HEMATOCRIT 34.5 % (37.9-51.0); HEMOGLOBIN 11.4 g/dL (13.5-17.0); LYMPHOCYTES % (AUTO) 9.3 % (13-45); MEAN CORPUSCULAR HEMOGLOBIN 24.1 pg (27.0-33.4); MEAN CORPUSCULAR HGB CONC 33.1 g/dL (32.0-36.0); MEAN CORPUSCULAR VOLUME 73 fl (80-97); MONOCYTES % (AUTO) 10.2 % (3-13); PLATELET COUNT 131 10^3/uL (150-450); RED BLOOD COUNT 4.73 10^6/uL (4.35-5.55); RED CELL DISTRIBUTION WIDTH 16.9 % (11.5-14.0); SEGMENTED NEUTROPHILS % (AUTO) 80.2 % (42-78); TOTAL CELLS COUNTED % (AUTO) 100 %; WHITE BLOOD COUNT 7.5 10^3/uL (4.0-10.5)
[2019-09-03 14:20] LABS: APPEARANCE,URINE CLEAR; BILIRUBIN,URINE NEGATIVE (NEGATIVE); COLOR,URINE YELLOW; GLUCOSE, URINE 50 mg/dL (NEGATIVE); KETONES,URINE NEGATIVE (NEGATIVE); PROTEIN,URINE 100 mg/dL (NEGATIVE); URINE SPECIFIC GRAVITY 1.008
[2019-09-03 14:27] LABS: A TYPE INFLUENZA AG NEGATIVE (NEGATIVE); B INFLUENZA AG NEGATIVE (NEGATIVE)
[2019-09-03 14:32] LABS: ALBUMIN 3.6 g/dL (3.5-5.0); ALKALINE PHOSPHATASE 49 U/L (38-126); ANION GAP 8 (5-19); ASPARTATE AMINO TRANSFERASE 28 U/L (17-59); BILIRUBIN,DIRECT 0.1 mg/dL (0.0-0.4); BLOOD UREA NITROGEN 22 mg/dL (7-20); CALCIUM 8.7 mg/dL (8.4-10.2); CARBON DIOXIDE 31 mmol/L (22-30); CHLORIDE 97 mmol/L (98-107); GLUCOSE 119 mg/dL (75-110); POTASSIUM 4.6 mmol/L (3.6-5.0); TOTAL PROTEIN 6.9 g/dL (6.3-8.2)
[2019-09-03] MEDS ORDERED: CEFTRIAXONE 1 GM/D5W RTU 1 GM/50 ML RTUPB IV ONE (14:44)
[2019-09-03] MEDS ORDERED: AZITHROMYCIN INJ 500 MG VIAL IV ONE (14:45)
[2019-09-03 16:59] VITALS: BP 147/89
== END 2019-09-03 17:42 | disposition home or self-care (01) ==
LOC: ER 12:21
DX: J18.9 Pneumonia, unspecified organism (principal); Z20.828 Contact with and (suspected) exposure to other viral communicable diseases; I12.0 Hypertensive chronic kidney disease with stage 5 chronic kidney disease or end stage renal disease; E11.22 Type 2 diabetes mellitus with diabetic chronic kidney disease; N18.6 End stage renal disease; Z99.2 Dependence on renal dialysis; R63.0 Anorexia; R50.9 Fever, unspecified; R19.7 Diarrhea, unspecified; F17.200 Nicotine dependence, unspecified, uncomplicated; Z79.899 Other long term (current) drug therapy
CPT/HCPCS: 99283; 96365; 96367; 36415; 87040; 87070; 87880; 85025; 87635; 87077; 80053; 81001; 87804; 87150 ×26; 71045; J3490; J0456; J0696